=== PATIENT | male | born 1960 | race Caucasian/White ===

== ENCOUNTER 2019-04-19 16:11 | Emergency (ER) | payer BC ==
[2019-04-19] MEDS ORDERED: ALUM & MAG HYDROX-SIMETHICONE 30 ML, LIDOCAINE VISCOUS 2% 15 ML PO ONE ×2 (16:36)
[2019-04-19] MEDS ORDERED: HYDROcodone 7.5MG/APAP 325MG 1 EA TAB PO ONE (16:36)
[2019-04-19] MEDS ORDERED: ASPIRIN TABLET 325 MG TAB PO ONE (16:36)
[2019-04-19] MEDS ORDERED: LIDOCAINE HCL 2% (MOUTH-THROAT) 15 ML UD ONE (16:58)
[2019-04-19] MEDS ORDERED: ALUM & MAG HYDROX-SIMETHICONE 30 ML UD ONE (16:58)
[2019-04-19 17:01] VITALS: TEMP 98.2
--- NOTE | 2019-04-19 17:24 | RAD ---
EXAM: XR Chest, 2 Views CLINICAL HISTORY: central back pain with radiation TECHNIQUE: Frontal and lateral views of the chest. COMPARISON: No relevant prior studies available. FINDINGS: Limitations: None. Lungs: Unremarkable. No consolidation. Pleural space: Unremarkable. No pneumothorax. Heart: Unremarkable. No cardiomegaly. Mediastinum: Unremarkable. Bones/joints: Unremarkable. IMPRESSION: No acute findings in the chest. Electronically signed by: Julisa Crews MD 04/19/2019 5:22 PM [employer]
[2019-04-19] MEDS ORDERED: predniSONE 20 MG TAB PO ONE (19:47)
[2019-04-19] MEDS ORDERED: CYCLOBENZAPRINE HCL 10 MG TAB PO ONE (19:47)
[2019-04-19 22:18] VITALS: O2SAT 95
--- NOTE | 2019-04-19 22:51 | ED.PDOC ---
History of Present Illness - General Chief Complaint: Chest Pain/SC Stated Complaint: Shoulderblade discomfort Time Seen by Provider: 04/19/19 16:21 Source: patient Exam Limitations: no limitations - History of Present Illness Initial Comments: the patient is a 58-year-old male presenting to emergency room secondary to acute worsening of his upper back pain. The patient does actually have a history of coronary artery disease and had a stent placed approximately 2-3 months ago. Since that time he has had upper back pain. It is in between his shoulder blades and worse with movement. Today when he was driving it was stronger than normal and gave some sharp shooting pains down his left arm. No chest pain or shortness of breath. He was concerned because his previous coronary artery disease had only really been indicated by back pain. No palpitations. No syncope or near syncope. He does have tenderness to palpation over bilateral rhomboid muscles. He has had increased body aches in general since the procedures well. He does take Plavix. He is back to his baseline back pain at this point. Timing/Duration: unsure Severity: moderate Improving Factors: nothing Worsening Factors: movement Associated Symptoms: denies symptoms Allergies/Adverse Reactions: Allergies Penicillins Allergy (Verified 04/19/19 16:26) Hives Home Medications: Ambulatory Orders Ssxpjyuqgyvjy-Lapn-Mfyktxsukg [Fioricet] 1 ea PO Q8H PRN #21 tab 04/19/19 Cyclobenzaprine HCl [Flexeril] 10 mg PO TID PRN #20 tab 04/19/19 predniSONE [Prednisone] 20 mg PO DAILY #5 tab 04/19/19 Review of Systems - Review of Systems Constitutional: States: no symptoms reported EENTM: States: no symptoms reported Respiratory: States: no symptoms reported Cardiology: States: no symptoms reported Gastrointestinal/Abdominal: States: no symptoms reported Genitourinary: States: no symptoms reported Musculoskeletal: States: back pain Skin: States: no symptoms reported Neurological: States: no symptoms reported Endocrine: States: no symptoms reported All other Systems: No Change from Baseline Past Medical History (General) - Patient Medical History Hx Stroke: No Hx Asthma: Yes Hx Cardiac Disorders: Yes - Recent stent placement 01/2019 Hx Congestive Heart Failure: No Hx Hypertension: Yes Hx Diabetes: No Hx Gastroesophageal Reflux: Yes Hx MRSA: No - Vaccination History Hx Tetanus, Diphtheria Vaccination: No Hx Influenza Vaccination: Yes - 2019 Hx Pneumococcal Vaccination: No - Social History Hx Tobacco Use: No Hx Alcohol Use: No Hx Substance Use: No Family Medical History - Family History Father Family History: No Known Living Status: Still Living Physical Exam - Physical Exam General Appearance: Alert, Anxious, No apparent distress Eye Exam: bilateral normal Ears, Nose, Throat: hearing grossly normal, normal ENT inspection Neck: full range of motion, supple Respiratory: lungs clear, normal breath sounds, no respiratory distress Cardiovascular/Chest: normal peripheral pulses, regular rate, rhythm, no edema Peripheral Pulses: radial,right: 2+, radial,left: 2+, dorsalis pedis,right: 2+, dorsalis pedis,left: 2+ Gastrointestinal/Abdominal: non tender, soft Rectal Exam: deferred Back Exam: no vertebral tenderness, other - ee history of present illness Extremity: normal range of motion, non-tender, normal inspection, no pedal edema, normal capillary refill 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, alert, normal mood/affect - he is anxious, oriented x 3 Skin Exam: normal color Comments: Vital Signs - 24 hr 04/19/19 04/19/19 04/19/19 16:11 17:30 19:00 Temperature 98.2 F Pulse Rate [ 70 72 86 Left Radial] Respiratory 18 18 14 Rate Blood Pressure 132/86 126/75 120/72 [Left Arm] O2 Sat by Pulse 96 95 97 Oximetry 04/19/19 04/19/19 04/19/19 20:00 20:58 22:00 Temperature Pulse Rate [ 64 61 89 Left Radial] Respiratory 16 18 14 Rate Blood Pressure 124/81 126/71 134/75 [Left Arm] O2 Sat by Pulse 96 94 L 95 Oximetry Progress - Progress Progress: 04/19/19 22:51 the patient's a 58-year-old male with a acute exacerbation of his upper back pain. Given his presentation, his monitoring, EKG, chest x-ray and laboratory work, the most likely source is musculoskeletal. I believe this is low probability to be cardiac in origin. he needs to continue his physical therapy. He needs to continue stretching. He needs to continue his exercise program. He'll be written for 5 days of oral prednisone to reduce inflammation he'll also be written for Flexeril for as needed use as a muscle relaxer. He needs to keep follow-up with cardiology. ER warnings were given for any significant acute worsening. maureen collier [phone] - Results/Orders Results/Orders: Laboratory Tests 04/19/19 04/19/19 04/19/19 16:44 16:44 16:44 WBC 8.1 RBC 4.91 Hgb 14.8 Hct 43.2 MCV 87.9 MCH 30.1 MCHC 34.3 RDW 14.4 Plt Count 144 MPV 8.3 Absolute Neuts (auto) 6.50 Absolute Lymphs (auto) 1.10 Absolute Monos (auto) 0.40 Absolute Eos (auto) 0.00 Absolute Basos (auto) 0.00 Neutrophils % 80.6 H Lymphocytes % 13.6 L Monocytes % 5.1 Eosinophils % 0.2 L Basophils % 0.5 PT 10.1 INR 1.01 PTT (SP) 25.6 Sodium Potassium Chloride Carbon Dioxide Anion Gap BUN Creatinine BUN/Creatinine Ratio Random Glucose Serum Osmolality Calcium Magnesium Total Bilirubin AST ALT Alkaline Phosphatase Creatine Kinase 78 CK-MB (CK-2) 1.3 CK-MB (CK-2) % Not Reportable Troponin I 0.02 B-Natriuretic Peptide < 5.0 Serum Total Protein Albumin Globulin Albumin/Globulin Ratio 04/19/19 04/19/19 04/19/19 16:44 19:25 22:17 WBC RBC Hgb Hct MCV MCH MCHC RDW Plt Count MPV Absolute Neuts (auto) Absolute Lymphs (auto) Absolute Monos (auto) Absolute Eos (auto) Absolute Basos (auto) Neutrophils % Lymphocytes % Monocytes % Eosinophils % Basophils % PT INR PTT (SP) Sodium 139 Potassium 3.9 Chloride 107 Carbon Dioxide 21 Anion Gap 14.9 BUN 21 H Creatinine 1.03 BUN/Creatinine Ratio 20.4 H Random Glucose 194 H Serum Osmolality 285.8 Calcium 8.9 Magnesium 2.1 Total Bilirubin 0.5 AST 23 ALT 30 Alkaline Phosphatase 54 Creatine Kinase 74 72 CK-MB (CK-2) 1.2 1.2 CK-MB (CK-2) % Not Reportable Not Reportable Troponin I < 0.02 < 0.02 B-Natriuretic Peptide Serum Total Protein 7.1 Albumin 4.1 Globulin 3.0 Albumin/Globulin Ratio 1.4 EKG shows flipped T waves in lead 3 only. Normal axis. Normal R-wave progression. Normal QT interval. No ST segment or T-wave changes otherwise indicative of acute ischemia. No previous EKGs for comparison. Chest x-ray fails to show any acute pathology. Departure - Departure Clinical Impression: Upper back pain Disposition: Discharge to Home or Self Care Condition: Fair Departure Forms: ED Discharge - Pt. Copy, Patient Portal Self Enrollment Instructions: Upper Back Pain (DC) Diet: low fat, low cholesterol Activity: increase activity as tolerated Prescriptions: Likrrigawplps-Aamr-Dxsjavgsjc [Fioricet] 1 ea PO Q8H PRN #21 tab PRN Reason: Pain Cyclobenzaprine HCl [Flexeril] 10 mg PO TID PRN #20 tab PRN Reason: Muscle Spasms predniSONE [Prednisone] 20 mg PO DAILY #5 tab Home Medications: Ambulatory Orders Eetunccvioxzl-Cbvo-Nunlpmpaud [Fioricet] 1 ea PO Q8H PRN #21 tab 04/19/19 Cyclobenzaprine HCl [Flexeril] 10 mg PO TID PRN #20 tab 04/19/19 predniSONE [Prednisone] 20 mg PO DAILY #5 tab 04/19/19 Additional Instructions: the patient's a 58-year-old male with a acute exacerbation of his upper back pain. Given his presentation, his monitoring, EKG, chest x-ray and laboratory work, the most likely source is musculoskeletal. I believe this is low probability to be cardiac in origin. he needs to continue his physical therapy. He needs to continue stretching. He needs to continue his exercise program. He'll be written for 5 days of oral prednisone to reduce inflammation he'll also be written for Flexeril for as needed use as a muscle relaxer. He needs to keep follow-up with cardiology. ER warnings were given for any significant acute worsening.
[2019-04-19 22:56] VITALS: BP 144/81
== END 2019-04-19 23:00 | disposition home or self-care (01) ==
LOC: ER 16:11
DX: M54.6 Pain in thoracic spine (principal); J45.909 Unspecified asthma, uncomplicated; I25.10 Atherosclerotic heart disease of native coronary artery without angina pectoris; I10 Essential (primary) hypertension; K21.9 Gastro-esophageal reflux disease without esophagitis; Z95.5 Presence of coronary angioplasty implant and graft; Z88.0 Allergy status to penicillin
CPT/HCPCS: 36415; 71046; 80053; 82550; 82553; 83735; 83880; 84484; 85025; 85610; 85730; 93005; J7512